=== PATIENT | female | born 1960 | race Caucasian/White ===

== ENCOUNTER 2021-02-21 10:53 | Outpatient (CLI) | payer MEDICARE, MEDICAID ==
[2021-02-22 07:47] LABS: SARS-CoV-2 NAA Rapid Test DETECTED (NotDetected)
== END 2021-02-21 10:54 | disposition home or self-care (01) ==
LOC: LABBT 10:53
PROVIDERS: ATTEND Internal Medicine Gastroenterology
DX: Z01.812 Encounter for preprocedural laboratory examination (principal); K59.09 Other constipation; Z20.822 Contact with and (suspected) exposure to COVID-19
CPT/HCPCS: U0002; U0005

== ENCOUNTER 2021-03-16 06:08 | Day surgery (SDC) | payer MEDICARE, MEDICAID ==
[2021-03-15 08:25] VITALS: BMI 17.7
[2021-03-16] MEDS ORDERED: Midazolam HCl 2 mg/2 ml Vial ONE (07:54)
[2021-03-16] MEDS ORDERED: PROPOFOL 200 MG/20 ML VIAL ONE (08:50)
== END 2021-03-16 10:45 | disposition home or self-care (01) ==
LOC: SDC 06:08
PROVIDERS: ATTEND Internal Medicine Gastroenterology
PROC: 0DBM8ZX Excision of Descending Colon, Via Natural or Artificial Opening Endoscopic, Diagnostic (ICD-10-PCS; principal; 2021-03-16)
DX: D12.4 Benign neoplasm of descending colon (principal); K59.09 Other constipation; K59.89 Other specified functional intestinal disorders; Z88.8 Allergy status to other drugs, medicaments and biological substances; Z79.2 Long term (current) use of antibiotics; Z79.899 Other long term (current) drug therapy
CPT/HCPCS: 88305; J2250; J2704